=== PATIENT | female | born 1965 | race Caucasian/White ===

== ENCOUNTER → 2017-12-09 | Outpatient (CLI) | payer OTHER ==
[~2017-12-09] MED LIST: BUTALB-ACETAMI1 EACH PO; Cyclobenzaprine5 MG PO; RIZATRIPTAN10 MG PO
== END | disposition home or self-care (01) ==
LOC: LAB SHORT 16:58 → OLS 16:58
PROVIDERS: Obstetrics & Gynecology Gynecology
DX: Z12.4 Encounter for screening for malignant neoplasm of cervix (principal)
CPT/HCPCS: 87624; G0123

== ENCOUNTER → 2018-09-08 | Outpatient (CLI) | payer OTHER ==
[2018-09-08 14:16] LABS: BASOPHILS ABSOLUTE AUTO 0.02 K/mm3 (0.00-0.23); BASOPHILS PERCENT AUTO 0 % (0-2); EOSINOPHILS ABSOLUTE AUTO 0.01 K/mm3 (0.00-0.68); EOSINOPHILS PERCENT AUTO 0 % (0-6); Hematocrit 38.7 % (33.0-51.0); Hemoglobin 12.4 g/dL (11.5-16.0); IMMATURE GRAN ABSOLUTE AUTO 0.05 K/mm3 (0.00-0.10); IMMATURE GRAN PERCENT AUTO 0 % (0-1); LYMPHOCYTES ABSOLUTE AUTO 0.34 K/mm3 (0.84-5.20); LYMPHOCYTES PERCENT AUTO 3 % (21-46); MONOCYTES ABSOLUTE AUTO 0.52 K/mm3 (0.16-1.47); MONOCYTES PERCENT AUTO 4 % (4-13); Mean Corpuscular HGB 25.1 pg (26.0-34.0); Mean Corpuscular Volume 78 fL (80-100); Mean Platelet Volume 10.3 fL (9.1-12.4); NEUTROPHILS ABSOLUTE AUTO 11.35 K/mm3 (1.96-9.15); NEUTROPHILS PERCENT AUTO 92 % (41-73); Platelet Count 196 K/mm3 (150-400); RDW Coefficient Variation 13.6 % (11.7-14.2); RDW Standard Deviation 38.5 fL (35.1-46.3); Red Blood Cell Count 4.95 M/mm3 (3.80-5.20); White Blood Cell Count 12.29 K/mm3 (4.00-11.30)
[2018-09-08 14:27] LABS: Albumin, Blood 4.2 g/dL (3.4-5.0); Albumin/Globulin Ratio 1.2 (0.8-1.8); Bilirubin, Total 0.5 mg/dL (0.1-1.0); Bun/Creatinine Ratio 14.4 (12.0-20.0); Calcium, Blood 9.6 mg/dL (8.5-10.1); Creatinine, Blood 0.97 mg/dL (0.40-1.00); Globulin, Blood 3.6 g/dL (2.2-4.0); Potassium, Blood 3.5 mmol/L (3.5-5.5); Total Protein, Blood 7.8 g/dL (6.4-8.2)
== END ==
LOC: LAB SHORT 14:10 → LAB EV 14:10
PROVIDERS: Emergency Medicine
DX: I95.9 Hypotension, unspecified (principal)
CPT/HCPCS: 80053; 85025; 87040

== ENCOUNTER → 2019-03-02 | Outpatient (CLI) | payer OTHER ==
[2019-03-04 13:07] LABS: HPV 16 Negative (Negative); HPV 18 Negative (Negative); HPV OTHER HR TYPES Negative (Negative)
== END | disposition home or self-care (01) ==
LOC: LAB 16:39 → LAB SHORT 16:39
PROVIDERS: Obstetrics & Gynecology Gynecology
DX: Z12.4 Encounter for screening for malignant neoplasm of cervix (principal)
CPT/HCPCS: 87624; G0123

== ENCOUNTER → 2023-06-25 | Outpatient (CLI) | payer SELFPAY ==
[2023-07-03 07:22] LABS: HPV GENOTYPE 16 Not Detected; HPV GENOTYPE 18 Not Detected; HPV HIGH RISK Not Detected; HPV SOURCE Cervical/Vag
== END ==
LOC: LAB 12:26 → LAB SHORT 12:26
PROVIDERS: Obstetrics & Gynecology
DX: Z01.419 Encounter for gynecological examination (general) (routine) without abnormal findings (principal)
CPT/HCPCS: 87624; G0123